=== PATIENT | female | born 1940 | race Caucasian/White ===

== ENCOUNTER → 2018-05-12 | Outpatient (CLI) | payer MEDICARE, OTHER ==
[~2018-05-12] MED LIST: ACET325 PO; ALEN70 PO; ALPHA LIPOIC A200 MG PO; AMIT10 PO; AMLO5 PO; ASPI81CH PO; ATOR20 PO; BISA10S PR; GABA300T24; GLIM2 PO; LEVSOD50 PO; LEVSOD75 PO; LISI20 PO; LOPE2C PO; MECL12.5 PO; METF500 PO; METO25 PO; METO25ER; MIRALAX17 GM PO; MYLANTA PO; Milk Of Ma400 MG/5 M PO; OLME20 PO; OMEP20ER PO; PRED10 PO; PREG75 PO; SIME80CH PO; XYLITOL PO; ZESTRIL PO; Zofran Odt4 MG SL
[2018-05-12 13:24] LABS: Bilirubin, Urine Neg (Neg); Blood, Urine 5+ (Neg); Glucose Qualitative, Urine Neg (Neg); Ketones, Urine 2+ (Neg); Leukocyte Esterase, Urine 3+ (Neg); Nitrite, Urine Pos (Neg); Protein, Urine 3+ (Neg); Urobilinogen, Urine NORM (Normal)
[2018-05-12 13:31] LABS: Appearance, Urine Turbid (Clear); Color, Urine Yellow (P-Yellow)
[2018-05-12 13:32] LABS: Bacteria Many /hpf; Red Blood Cells, Urine TNTC /hpf (0-2); Squamous Epithelial Cells Few /hpf (Few); White Blood Cells, Urine TNTC /hpf (0-5)
== END | disposition home or self-care (01) ==
LOC: LAB SHORT 07:40 → LAB 07:40
PROVIDERS: Family Medicine
DX: N39.0 Urinary tract infection, site not specified (principal)
CPT/HCPCS: 81001; 87077; 87086; 87186

== ENCOUNTER 2020-02-01 07:22 | Day surgery (SDC) | payer MEDICARE, OTHER ==
[~2020-02-01] VITALS: Ht 160 cm; Wt 70.5 kg
[~2020-02-01 07:22] MED LIST changes: +CALCIUM CITRATE PO; +TERB250 TOP; +TRAM50 PO; +VITAMIN D PO
--- NOTE | 2020-02-01 08:51 | NUR ---
History, Chart, Medications and Allergies reviewed before start of procedure.Lungs clear T/O to Auscultation. Patient confirms NPO status and agrees with scheduled surgery.
--- NOTE | 2020-02-01 12:30 | NUR ---
DISCHARGE PT DCD HOME DENIES N/V MEDICATED WITH 1 PERCOCET FOR PAIN THAT IS NOW 01/06. PT'S DAUGHTER HERE TO FORCE ADJUSTMENT SUPERVISOR PT. PT WC TO CAR. ALERT AND ORIENTED ABLE TO EAT AND DRINK AT DISCHARGE
== END 2020-02-01 22:36 | disposition home or self-care (01) ==
LOC: ORSCMMR 07:22 → ORD 09:00 → ORSCMMR 22:36
PROVIDERS: Orthopaedic Surgery
PROC: 0SBC4ZZ Excision of Right Knee Joint, Percutaneous Endoscopic Approach (ICD-10-PCS; principal; 2020-02-01 09:00)
DX: S83.231A Complex tear of medial meniscus, current injury, right knee, initial encounter (principal); I10 Essential (primary) hypertension; E11.9 Type 2 diabetes mellitus without complications; Z79.899 Other long term (current) drug therapy; Z79.84 Long term (current) use of oral hypoglycemic drugs
CPT/HCPCS: 82947; J0171; J0690; J3010; J7120

== ENCOUNTER 2025-01-28 12:45 | Emergency (ER) | payer MEDICARE, OTHER ==
[~2025-01-28] VITALS: Ht 165.1 cm; Wt 62.1 kg
[~2025-01-28 12:45] MED LIST changes: -ACET325 PO; +ACETAMINOPHEN500 MG PO; +CALCIUM CITRAT1 EA18 PO; -CALCIUM CITRATE PO
[2025-01-28] MEDS ORDERED: NS 1,000 ML IV SCH (13:25)
[2025-01-28 13:41] LABS: BASOPHILS ABSOLUTE AUTO 0.02 K/mm3 (0.00-0.23); BASOPHILS PERCENT AUTO 0 % (0-2); EOSINOPHILS ABSOLUTE AUTO 0.01 K/mm3 (0.00-0.68); EOSINOPHILS PERCENT AUTO 0 % (0-6); Hemoglobin 12.1 g/dL (11.5-16.0); IMMATURE GRAN ABSOLUTE AUTO 0.03 K/mm3 (0.00-0.10); IMMATURE GRAN PERCENT AUTO 0 % (0-1); LYMPHOCYTES ABSOLUTE AUTO 1.59 K/mm3 (0.84-5.20); LYMPHOCYTES PERCENT AUTO 20 % (21-46); MONOCYTES ABSOLUTE AUTO 0.62 K/mm3 (0.16-1.47); MONOCYTES PERCENT AUTO 8 % (4-13); Mean Corpuscular HGB 31.5 pg (26.0-34.0); Mean Corpuscular HGB Conc 33.6 g/dL (31.5-36.5); Mean Corpuscular Volume 94 fL (80-100); Mean Platelet Volume 9.1 fL (9.1-12.4); NEUTROPHILS ABSOLUTE AUTO 5.83 K/mm3 (1.96-9.15); NEUTROPHILS PERCENT AUTO 72 % (41-73); Platelet Count 321 K/mm3 (150-400); RDW Coefficient Variation 14.9 % (11.7-14.2); RDW Standard Deviation 51.7 fL (35.1-46.3); Red Blood Cell Count 3.84 M/mm3 (3.80-5.20)
[2025-01-28 13:53] LABS: Albumin, Blood 3.4 g/dL (3.4-5.0); Albumin/Globulin Ratio 0.9 (0.8-1.8); Bilirubin, Total 0.4 mg/dL (0.1-1.0); Bun/Creatinine Ratio 32.7 (12.0-20.0); Calcium, Blood 9.2 mg/dL (8.5-10.1); Creatinine, Blood 1.1 mg/dL (0.40-1.00); Globulin, Blood 3.6 g/dL (2.2-4.0)
[2025-01-28 15:46] LABS: Source, Urine Straight Cath
[2025-01-28 15:50] LABS: Appearance, Urine Hazy (Clear); Bilirubin, Urine Neg (Neg); Blood, Urine 1+ (Neg); Color, Urine Yellow (P-Yellow); Glucose Qualitative, Urine Neg (Neg); Ketones, Urine 1+ (Neg); Leukocyte Esterase, Urine 3+ (Neg); Nitrite, Urine Neg (Neg); Protein, Urine 1+ (Neg); Urobilinogen, Urine NORM (Normal)
[2025-01-28] MEDS ORDERED: DOCU100 PO (16:00)
[2025-01-28 16:01] LABS: Bacteria Many /hpf; Squamous Epithelial Cells Mod /hpf (Few); Transitional Epithelial Cells Few /hpf (0-Rare); White Blood Cells, Urine 25-50 /hpf (0-5)
[2025-01-28] MEDS ORDERED: LOPE2C PO (16:01)
[2025-01-28] MEDS ORDERED: LACT10SY PO (16:01)
[2025-01-28] MEDS ORDERED: MOTION RELIEF25 MG PO (16:02)
[2025-01-28] MEDS ORDERED: PANT40 PO (16:03)
[2025-01-28] MEDS ORDERED: Prochlorperazin10 MG PO (16:04)
[2025-01-28] MEDS ORDERED: PAXLOVID 150-11 EAC1 PO (16:04)
[2025-01-28] MEDS ORDERED: ONDA4ODT MM (17:56)
[2025-01-28] MEDS ORDERED: CEPH500 PO (17:56)
[2025-01-28 18:00] VITALS: BP 108/56
[2025-01-28] MEDS ORDERED: CefTRIAXone Sodium 1,000 MG in NS 50 ML IV ONE (18:10)
== END 2025-01-28 19:14 | disposition home or self-care (01) ==
LOC: ER 12:45
PROVIDERS: Emergency Medicine
DX: U07.1 COVID-19 (principal); N39.0 Urinary tract infection, site not specified; Z88.5 Allergy status to narcotic agent; Z88.1 Allergy status to other antibiotic agents; Z88.2 Allergy status to sulfonamides; Z79.84 Long term (current) use of oral hypoglycemic drugs; Z79.2 Long term (current) use of antibiotics; Z79.891 Long term (current) use of opiate analgesic; E11.9 Type 2 diabetes mellitus without complications; I10 Essential (primary) hypertension; M19.90 Unspecified osteoarthritis, unspecified site
CPT/HCPCS: 71045; 80053; 81001; 85025; 87077; 87086; 87186; 96361; 96374; 99284-25; J0696; J7030

== ENCOUNTER → 2025-02-10 | Outpatient (CLI) | payer MEDICARE, OTHER | LOC: LAB 12:30 → LAB SHORT 12:30 | DX: N39.0 Urinary tract infection, site not specified (principal) ==

== ENCOUNTER 2025-06-06 20:42 | Emergency (ER) | payer MEDICARE, OTHER ==
[~2025-06-06] VITALS: Ht 157.5 cm; Wt 59.4 kg
[~2025-06-06 20:42] MED LIST changes: +CEPH500 PO; +DOCU100 PO; +LACT10SY PO; +MOTION RELIEF25 MG PO; +ONDA4ODT MM; +PANT40 PO; +PAXLOVID 150-11 EAC1 PO; +Prochlorperazin10 MG PO
[2025-06-06 21:00] VITALS: BP 149/67
[2025-06-06] MEDS ORDERED: Morphine Sulfate 4 MG/1 ML Injection IV ONE (21:25)
[2025-06-06] MEDS ORDERED: Ondansetron HCl 2 MG / ML 2ML Vial IV ONE (21:45)
[2025-06-07] MEDS ORDERED: Ketorolac Tromethamine 15mg Vial IV ONE (00:20)
[2025-06-07] MEDS ORDERED: Morphine Sulfate 4 MG/1 ML Injection IV ONE (00:20)
[2025-06-07] MEDS ORDERED: Ondansetron 4 MG SoluTab SL ONE (01:45)
[2025-06-07] MEDS ORDERED: RX Prepack 2 Tabs Ondansetron ODT 4MG UD ONE (01:45)
[2025-06-07] MEDS ORDERED: RX Prepack 6 Tabs Oxycodone 5mg UD ONE (01:45)
[2025-06-07] MEDS ORDERED: Percocet 5-3251 EACH PO ×2 (01:47→10:23)
[2025-06-08] MEDS ORDERED: IBUP400 PO (09:42)
[2025-06-08] MEDS ORDERED: ONDA4ODT MM (10:22)
== END 2025-06-07 09:00 | disposition home or self-care (01) ==
LOC: ER 20:42
DX: M54.9 Dorsalgia, unspecified (principal); M25.552 Pain in left hip; M25.551 Pain in right hip; M54.2 Cervicalgia; W18.30XA Fall on same level, unspecified, initial encounter; M48.54XA Collapsed vertebra, not elsewhere classified, thoracic region, initial encounter for fracture; M48.56XA Collapsed vertebra, not elsewhere classified, lumbar region, initial encounter for fracture; E11.9 Type 2 diabetes mellitus without complications; I10 Essential (primary) hypertension; Z88.5 Allergy status to narcotic agent; Z88.8 Allergy status to other drugs, medicaments and biological substances; Z88.2 Allergy status to sulfonamides; Z88.1 Allergy status to other antibiotic agents; Z79.899 Other long term (current) drug therapy; Z79.84 Long term (current) use of oral hypoglycemic drugs
CPT/HCPCS: 70450; 72125; 72128; 72131; 73521; 96374; 96375; 96376; 99284-25; A9270; J1885; J2270; J2405

== ENCOUNTER 2025-06-08 05:47 | Emergency (ER) | payer MEDICARE, OTHER ==
[~2025-06-08] VITALS: Ht 157.5 cm; Wt 72.6 kg
[~2025-06-08 05:47] MED LIST changes: +Percocet 5-3251 EACH PO
[2025-06-08 06:00] VITALS: BP 153/82
[2025-06-08] MEDS ORDERED: NS 1,000 ML IV SCH (06:50)
[2025-06-08 07:00] LABS: BASOPHILS ABSOLUTE AUTO 0.02 K/mm3 (0.00-0.23); BASOPHILS PERCENT AUTO 0 % (0-2); EOSINOPHILS ABSOLUTE AUTO 0.10 K/mm3 (0.00-0.68); EOSINOPHILS PERCENT AUTO 1 % (0-6); Hematocrit 33.8 % (33.0-51.0); Hemoglobin 11.5 g/dL (11.5-16.0); IMMATURE GRAN ABSOLUTE AUTO 0.08 K/mm3 (0.00-0.10); IMMATURE GRAN PERCENT AUTO 1 % (0-1); LYMPHOCYTES ABSOLUTE AUTO 2.97 K/mm3 (0.84-5.20); LYMPHOCYTES PERCENT AUTO 21 % (21-46); MONOCYTES ABSOLUTE AUTO 1.05 K/mm3 (0.16-1.47); MONOCYTES PERCENT AUTO 7 % (4-13); Mean Corpuscular HGB Conc 34.0 g/dL (31.5-36.5); Mean Corpuscular Volume 95 fL (80-100); NEUTROPHILS ABSOLUTE AUTO 9.92 K/mm3 (1.96-9.15); NEUTROPHILS PERCENT AUTO 70 % (41-73); NRBC ABSOLUTE 0.00 K/mm3 (0.00-0.02); NRBC Auto 0.0 /100 WBC (0.0-0.2); Platelet Count 246 K/mm3 (150-400); RDW Coefficient Variation 14.8 % (11.7-14.2); RDW Standard Deviation 51.6 fL (35.1-46.3)
[2025-06-08 07:09] LABS: Alanine Aminotransfer (ALT/SGP 14.0 U/L (12-78); Albumin, Blood 3.6 g/dL (3.4-5.0); Albumin/Globulin Ratio 1.0 (0.8-1.8); Anion Gap 12.0 mmol/L (3-11); Aspartate Aminotrans (AST/SGOT 21.0 U/L (12-37); Bilirubin, Total 0.6 mg/dL (0.1-1.0); Blood Urea Nitrogen 23.0 mg/dL (8-24); CO2, Blood 26.0 mmol/L (21-32); Calcium, Blood 9.3 mg/dL (8.5-10.1); Chloride, Blood 100.0 mmol/L (98-108); Creatinine, Blood 0.84 mg/dL (0.40-1.00); Globulin, Blood 3.7 g/dL (2.2-4.0); Glucose, Blood 186.0 mg/dL (70-99); Magnesium, Blood 1.6 mg/dL (1.6-2.4); Potassium, Blood 4.6 mmol/L (3.5-5.5); Sodium, Blood 133.0 mmol/L (136-145); Total Protein, Blood 7.3 g/dL (6.4-8.2)
[2025-06-08] MEDS ORDERED: Magnesium Sulf 2 GM/Water 50ML 50 ML IV ONE (07:35)
[2025-06-08] MEDS ORDERED: Ketorolac Tromethamine 30mg Vial IV ONE (08:20)
[2025-06-08] MEDS ORDERED: IBUP400 PO ×2 (09:42→10:22)
[2025-06-08] MEDS ORDERED: ONDA4ODT MM (10:22)
== END 2025-06-08 10:37 | disposition home or self-care (01) ==
LOC: ER 05:47
PROVIDERS: Student in an Organized Health Care Education/Training Program
DX: S01.81XA Laceration without foreign body of other part of head, initial encounter (principal); E86.0 Dehydration; E11.9 Type 2 diabetes mellitus without complications; I10 Essential (primary) hypertension; W01.0XXA Fall on same level from slipping, tripping and stumbling without subsequent striking against object, initial encounter; Z86.73 Personal history of transient ischemic attack (TIA), and cerebral infarction without residual deficits; Z79.84 Long term (current) use of oral hypoglycemic drugs; Z79.899 Other long term (current) drug therapy; Z88.5 Allergy status to narcotic agent; Z88.1 Allergy status to other antibiotic agents; Z88.8 Allergy status to other drugs, medicaments and biological substances
CPT/HCPCS: 12011; 70450; 80053; 83735; 85025; 93005; 93010; 96374; 99285-25; J1885; J3475; J7030

== ENCOUNTER 2025-06-13 20:13 | Emergency (ER) | payer MEDICARE, OTHER ==
[~2025-06-13] VITALS: Ht 157.5 cm; Wt 59.0 kg
[~2025-06-13 20:13] MED LIST changes: +IBUP400 PO
[2025-06-13 23:04] LABS: BASOPHILS ABSOLUTE AUTO 0.04 K/mm3 (0.00-0.23); BASOPHILS PERCENT AUTO 0 % (0-2); EOSINOPHILS ABSOLUTE AUTO 0.18 K/mm3 (0.00-0.68); EOSINOPHILS PERCENT AUTO 2 % (0-6); Hematocrit 33.1 % (33.0-51.0); Hemoglobin 11.5 g/dL (11.5-16.0); IMMATURE GRAN ABSOLUTE AUTO 0.05 K/mm3 (0.00-0.10); IMMATURE GRAN PERCENT AUTO 0 % (0-1); LYMPHOCYTES ABSOLUTE AUTO 2.10 K/mm3 (0.84-5.20); LYMPHOCYTES PERCENT AUTO 17 % (21-46); MONOCYTES ABSOLUTE AUTO 0.83 K/mm3 (0.16-1.47); MONOCYTES PERCENT AUTO 7 % (4-13); Mean Corpuscular HGB Conc 34.7 g/dL (31.5-36.5); Mean Corpuscular Volume 95 fL (80-100); NEUTROPHILS ABSOLUTE AUTO 8.86 K/mm3 (1.96-9.15); NEUTROPHILS PERCENT AUTO 74 % (41-73); NRBC ABSOLUTE 0.00 K/mm3 (0.00-0.02); NRBC Auto 0.0 /100 WBC (0.0-0.2); Platelet Count 306 K/mm3 (150-400); RDW Coefficient Variation 15.1 % (11.7-14.2); RDW Standard Deviation 51.6 fL (35.1-46.3)
[2025-06-13] MEDS ORDERED: OXYCODONE-ACET1 EAC3 PO (23:06)
[2025-06-13 23:25] LABS: Alanine Aminotransfer (ALT/SGP 16.0 U/L (12-78); Albumin, Blood 3.3 g/dL (3.4-5.0); Albumin/Globulin Ratio 0.9 (0.8-1.8); Anion Gap 8.0 mmol/L (3-11); Aspartate Aminotrans (AST/SGOT 16.0 U/L (12-37); Bilirubin, Total 0.4 mg/dL (0.1-1.0); Blood Urea Nitrogen 16.0 mg/dL (8-24); CO2, Blood 28.0 mmol/L (21-32); Calcium, Blood 8.4 mg/dL (8.5-10.1); Chloride, Blood 101.0 mmol/L (98-108); Creatinine, Blood 0.87 mg/dL (0.40-1.00); Globulin, Blood 3.5 g/dL (2.2-4.0); Glucose, Blood 217.0 mg/dL (70-99); Potassium, Blood 4.4 mmol/L (3.5-5.5); Sodium, Blood 133.0 mmol/L (136-145); Total Protein, Blood 6.8 g/dL (6.4-8.2)
[2025-06-13 23:53] LABS: Source, Urine Clean Catch
[2025-06-14 00:11] LABS: Bilirubin, Urine Neg (Neg); Glucose Qualitative, Urine 3+ (Neg); Ketones, Urine Neg (Neg); Leukocyte Esterase, Urine Neg (Neg); Protein, Urine Neg (Neg); Specific Gravity, Urine 1.015 (1.003-1.022); Urobilinogen, Urine NORM (Normal)
[2025-06-14 00:15] LABS: Color, Urine Yellow (P-Yellow)
[2025-06-14] MEDS ORDERED: QUET25 PO (02:05)
[2025-06-14 03:00] VITALS: BP 152/68
== END 2025-06-14 03:00 | disposition home or self-care (01) ==
LOC: ER 20:13
PROVIDERS: Emergency Medicine
DX: R41.0 Disorientation, unspecified (principal); F03.90 Unspecified dementia, unspecified severity, without behavioral disturbance, psychotic disturbance, mood disturbance, and anxiety; E11.9 Type 2 diabetes mellitus without complications; I10 Essential (primary) hypertension; Z88.5 Allergy status to narcotic agent; Z88.8 Allergy status to other drugs, medicaments and biological substances; Z79.899 Other long term (current) drug therapy; Z79.890 Hormone replacement therapy; Z79.84 Long term (current) use of oral hypoglycemic drugs; Z86.73 Personal history of transient ischemic attack (TIA), and cerebral infarction without residual deficits; Z91.81 History of falling
CPT/HCPCS: 80053; 81003; 85025; 93005; 93010; 99285-25; A9270

== ENCOUNTER → 2025-06-15 | Outpatient (CLI) | payer MEDICARE, OTHER ==
[~2025-06-15] MED LIST changes: +OXYCODONE-ACET1 EAC3 PO; +QUET25 PO
== END ==
LOC: LAB SHORT 11:27 → LAB 11:27
DX: R53.83 Other fatigue (principal)
CPT/HCPCS: 84443

== ENCOUNTER 2025-08-11 17:03 | Emergency (ER) | payer MEDICARE, OTHER | END 2025-08-11 19:42 | disposition home or self-care (01) | LOC: ER 17:03 | DX: G45.9 Transient cerebral ischemic attack, unspecified (principal); E11.9 Type 2 diabetes mellitus without complications; M19.90 Unspecified osteoarthritis, unspecified site; I10 Essential (primary) hypertension; Z90.710 Acquired absence of both cervix and uterus; Z88.8 Allergy status to other drugs, medicaments and biological substances; Z88.2 Allergy status to sulfonamides; Z79.899 Other long term (current) drug therapy ==

== ENCOUNTER 2025-09-24 13:05 | Observation (INO) | payer MEDICARE, OTHER ==
[~2025-09-24] VITALS: Ht 157.5 cm; Wt 58.7 kg
[~2025-09-24 13:05] MED LIST changes: +Aspir 8181 MG PO; +CLOP75 PO
[2025-09-24 13:23] LABS: BASOPHILS ABSOLUTE AUTO 0.06 K/mm3 (0.00-0.23); BASOPHILS PERCENT AUTO 1 % (0-2); EOSINOPHILS ABSOLUTE AUTO 0.29 K/mm3 (0.00-0.68); EOSINOPHILS PERCENT AUTO 3 % (0-6); Hematocrit 31.1 % (33.0-51.0); Hemoglobin 10.1 g/dL (11.5-16.0); IMMATURE GRAN ABSOLUTE AUTO 0.03 K/mm3 (0.00-0.10); IMMATURE GRAN PERCENT AUTO 0 % (0-1); LYMPHOCYTES ABSOLUTE AUTO 2.44 K/mm3 (0.84-5.20); LYMPHOCYTES PERCENT AUTO 22 % (21-46); MONOCYTES ABSOLUTE AUTO 1.11 K/mm3 (0.16-1.47); MONOCYTES PERCENT AUTO 10 % (4-13); Mean Corpuscular HGB Conc 32.5 g/dL (31.5-36.5); Mean Corpuscular Volume 97 fL (80-100); NEUTROPHILS ABSOLUTE AUTO 7.07 K/mm3 (1.96-9.15); NEUTROPHILS PERCENT AUTO 64 % (41-73); NRBC ABSOLUTE 0.00 K/mm3 (0.00-0.02); NRBC Auto 0.0 /100 WBC (0.0-0.2); Platelet Count 300 K/mm3 (150-400); RDW Coefficient Variation 13.1 % (11.7-14.2); RDW Standard Deviation 46.8 fL (35.1-46.3)
[2025-09-24 13:42] LABS: Alanine Aminotransfer (ALT/SGP 22.0 U/L (12-78); Albumin, Blood 3.2 g/dL (3.4-5.0); Albumin/Globulin Ratio 0.9 (0.8-1.8); Anion Gap 9.0 mmol/L (3-11); Aspartate Aminotrans (AST/SGOT 24.0 U/L (12-37); Bilirubin, Total 0.2 mg/dL (0.1-1.0); Blood Urea Nitrogen 22.0 mg/dL (8-24); CO2, Blood 25.0 mmol/L (21-32); Calcium, Blood 8.6 mg/dL (8.5-10.1); Chloride, Blood 108.0 mmol/L (98-108); Creatinine, Blood 0.82 mg/dL (0.40-1.00); Globulin, Blood 3.7 g/dL (2.2-4.0); Glucose, Blood 144.0 mg/dL (70-99); Potassium, Blood 4.3 mmol/L (3.5-5.5); Sodium, Blood 138.0 mmol/L (136-145); Total Protein, Blood 6.9 g/dL (6.4-8.2)
[2025-09-24] MEDS ORDERED: BUDESONIDE-FO10.2 G2 INH (13:57)
[2025-09-24] MEDS ORDERED: FAMO20 PO (13:57)
[2025-09-24] MEDS ORDERED: FLU VACC TS2025(65UP)/MF59C/PF 45 MCG/0.5 ML SYRINGE IM SCH (16:25)
[2025-09-24] MEDS ORDERED: Ondansetron 4 MG SoluTab MM PRN (17:05)
--- NOTE | 2025-09-24 19:00 | NUR ---
ARRIVAL TO SURGICAL UNIT ROOM 224 AT 1847. PT ARRIVED VIA GURNEY AND ABLE TO STAND AND AMBULATE WITH STAFF GUIDANCE TO HOSPITAL BED. 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 PT HAS DENTURES AND HEARING AIDS PRESENT ON ADMISSION. DAUGHTER MARYBETH AT BEDSIDE AND REPORTS HAS POA BUT UNSURE IF IS MEDICAL OR FINANCIAL. PT IS DNR CODE STATUS AND DNR BRACELET PLACED, PT AND DAUGHTER MARYBETH VERBALIZE UNDERSTANDING. DENIES IGNITION SOURCES PRESENT. BED ALARM SET FOR SAFETY AND RAISED STICKER PLACED TO HELP PT LOCATE CALL [employer] HEAD LIGHT REMOTE.
[2025-09-24 19:02] VITALS: BP 142/69
--- NOTE | 2025-09-24 22:00 | NUR ---
CALL TO HOSPITALIST. UPON REVIEW OF MEDICATION RECONCILIATION WITH PT AND DAUGHTER, HOME MEDICATION SYMBICORT WAS NOT ORDERED ON ADMISSION. VERBAL ORDER VIA TELEPHONE OBTAINED TO ORDER HOME DOSE/FREQUENCY OF SYMBICORT FROM DR. MARROQUIN.
[2025-09-25 01:19] VITALS: BP 131/64
[2025-09-25] MEDS ORDERED: Formoterol/Mometasone MDI 5/200 mcg 13 GM INH SCH (02:35)
--- NOTE | 2025-09-25 02:48 | NUR ---
CALL TO PHARMACIST. UNABLE TO ENTER OPTION FOR SYMBICORT IN MEDICATION ORDERS. PER PHARMACIST ARISTIDES, DULERA 200 IS THE SUBSTITUTION FOR SYMBICORT 160-4.5 DOSING. PLACED ORDERS FOR THE SUBSTITUTION PER PHARMACIST RECOMENDATION.
[2025-09-25 04:47] LABS: BASOPHILS ABSOLUTE AUTO 0.04 K/mm3 (0.00-0.23); BASOPHILS PERCENT AUTO 1 % (0-2); EOSINOPHILS ABSOLUTE AUTO 0.21 K/mm3 (0.00-0.68); EOSINOPHILS PERCENT AUTO 3 % (0-6); Hematocrit 28.6 % (33.0-51.0); Hemoglobin 9.6 g/dL (11.5-16.0); IMMATURE GRAN ABSOLUTE AUTO 0.02 K/mm3 (0.00-0.10); IMMATURE GRAN PERCENT AUTO 0 % (0-1); LYMPHOCYTES ABSOLUTE AUTO 1.82 K/mm3 (0.84-5.20); LYMPHOCYTES PERCENT AUTO 21 % (21-46); MONOCYTES ABSOLUTE AUTO 1.05 K/mm3 (0.16-1.47); MONOCYTES PERCENT AUTO 12 % (4-13); Mean Corpuscular HGB Conc 33.6 g/dL (31.5-36.5); Mean Corpuscular Volume 94 fL (80-100); NEUTROPHILS ABSOLUTE AUTO 5.43 K/mm3 (1.96-9.15); NEUTROPHILS PERCENT AUTO 63 % (41-73); NRBC ABSOLUTE 0.00 K/mm3 (0.00-0.02); NRBC Auto 0.0 /100 WBC (0.0-0.2); Platelet Count 267 K/mm3 (150-400); RDW Coefficient Variation 13.2 % (11.7-14.2); RDW Standard Deviation 45.6 fL (35.1-46.3)
[2025-09-25 05:06] VITALS: BP 145/71
[2025-09-25 05:19] LABS: Anion Gap 4.0 mmol/L (3-11); Blood Urea Nitrogen 23.0 mg/dL (8-24); CO2, Blood 30.0 mmol/L (21-32); Calcium, Blood 9.1 mg/dL (8.5-10.1); Chloride, Blood 110.0 mmol/L (98-108); Creatinine, Blood 0.72 mg/dL (0.40-1.00); Glucose, Blood 103.0 mg/dL (70-99); Potassium, Blood 3.8 mmol/L (3.5-5.5); Sodium, Blood 140.0 mmol/L (136-145)
--- NOTE | 2025-09-25 06:17 | NUR ---
SHIFT SUMMARY NOC. PT ADMIT FOR LEFT SIDED WEAKNESS AND SUSPECTED TIA. PT A/O X4, SPEECH IS SLOW BUT NOT SLURRED. NO TROUBLE WITH WORD FINDING. JUNIOR LOAN PROCESSOR STRENGTH EQUAL, NO FACIAL DROOP NOTED. PT HAS REDUCED ROM TO LEFT SHOULDER, PT REPORTED HX OF INJURY IN SHOULDER AND DIFFICULTY LIFTING ARM R/T PAIN OVER WEAKNESS. PT ANSWERS QUESTIONS APPROPRIATELY. PT ABLE TO USE CALL LIGHT WITH ADDED RAISED STICKER, PT IS BLIND. PT MEDICATED FOR PAIN X1 WITH ORAL TYLENOL FOR BACK/L SHOULDER PAIN. PT VOIDING URINE VIA BSC WITH STAFF ASSISTANCE, BED ALARM SET FOR SAFETY D/T HX OF FALLS.
[2025-09-25 07:16] VITALS: BP 142/72
[2025-09-25] MEDS ORDERED: MetFORMIN HCl 500 mg PO SCH (08:00)
[2025-09-25] MEDS ORDERED: Enoxaparin 40 MG/0.4 ML SYR SC SCH (09:00)
[2025-09-25] MEDS ORDERED: Cyanocobalamin/Fa/Pyridoxine 1 Tablet PO SCH (09:00)
--- NOTE | 2025-09-25 12:53 | NUR ---
NURSING NOTE: PATIENT LEFT FLOOR TO GO TO MRI.
[2025-09-25 16:46] VITALS: BP 122/58
--- NOTE | 2025-09-25 17:12 | NUR ---
SHIFT SUMMARY: A & OX4, CALM, COOPERATIVE. VSS ON RA. TOLERATING DIET. C/O LEFT SHOULDER PAIN, INCREASING WITH MOVEMENT, TYLENOL EFFECTIVE, X-RAY DONE OF L SHOULDER, NEGATIVE FOR FRACTURE. ECHO DONE TODAY EF 65%. MRI OF HEAD, SEE RESULTS. PATIENT TRANSFERS 1 PA TO [facility], NEEDS DIRECTION DUE TO BLINDNESS. BLOOD SUGARS ELEVATED, TAKEN AC HS, PATIENT TAKING METFORMIN, REFUSED AM DOSE. SLIGHT LEFT FACIAL DROOP NOTED, NO SWALLOWING DIFFICULTIES, EMERGENCY DISPATCHER STRENGTH STRONG. PATIENT ABLE TO MOVE LEGS AGAINST RESISTENCE WITHOUT DIFFICULTY. BED ALARM ON FOR PATIENT SAFETY, PATIENT EDUCATED PATIENT CARE DIRECTOR LIGHT, VERBALIZED UNDERSTANDING. VOIDS WITHOUT DIFFICULTY. LBM 09/23, PASSING GAS. DAUGHTER AT BEDSIDE, HELPFUL IN CARES.
[2025-09-25 19:21] VITALS: BP 120/60
[2025-09-26 03:04] VITALS: BP 149/75
[2025-09-26 05:40] LABS: BASOPHILS ABSOLUTE AUTO 0.04 K/mm3 (0.00-0.23); BASOPHILS PERCENT AUTO 1 % (0-2); EOSINOPHILS ABSOLUTE AUTO 0.23 K/mm3 (0.00-0.68); EOSINOPHILS PERCENT AUTO 3 % (0-6); Hematocrit 29.0 % (33.0-51.0); Hemoglobin 9.6 g/dL (11.5-16.0); IMMATURE GRAN ABSOLUTE AUTO 0.02 K/mm3 (0.00-0.10); IMMATURE GRAN PERCENT AUTO 0 % (0-1); LYMPHOCYTES ABSOLUTE AUTO 1.96 K/mm3 (0.84-5.20); LYMPHOCYTES PERCENT AUTO 24 % (21-46); MONOCYTES ABSOLUTE AUTO 0.93 K/mm3 (0.16-1.47); MONOCYTES PERCENT AUTO 12 % (4-13); Mean Corpuscular HGB Conc 33.1 g/dL (31.5-36.5); Mean Corpuscular Volume 96 fL (80-100); NEUTROPHILS ABSOLUTE AUTO 4.93 K/mm3 (1.96-9.15); NEUTROPHILS PERCENT AUTO 61 % (41-73); NRBC ABSOLUTE 0.00 K/mm3 (0.00-0.02); NRBC Auto 0.0 /100 WBC (0.0-0.2); Platelet Count 292 K/mm3 (150-400); RDW Coefficient Variation 13.2 % (11.7-14.2); RDW Standard Deviation 46.4 fL (35.1-46.3)
[2025-09-26 06:16] LABS: Anion Gap 10.0 mmol/L (3-11); Blood Urea Nitrogen 26.0 mg/dL (8-24); CO2, Blood 26.0 mmol/L (21-32); Calcium, Blood 8.7 mg/dL (8.5-10.1); Chloride, Blood 108.0 mmol/L (98-108); Creatinine, Blood 0.82 mg/dL (0.40-1.00); Glucose, Blood 107.0 mg/dL (70-99); Potassium, Blood 4.0 mmol/L (3.5-5.5); Sodium, Blood 140.0 mmol/L (136-145)
[2025-09-26 07:06] VITALS: BP 126/59
[2025-09-26] MEDS ORDERED: Insulin Human Lispro 100 Units/ML 3ML Syringe SC SCH (07:30)
--- NOTE | 2025-09-26 07:43 | NUR ---
SHIFT SUMMARY NOC. PT ADMIT FOR LEFT SIDED WEAKNESS AND SUSPECTED TIA. PT A/O X4. PUPILS EQUAL AND REACTIVE, NO SLURRED SPEECH, ACCOUNT ADVISOR STRENGTH EQUAL AND NO FACIAL DROOP NOTED. PT CONTINUES TO HAVE PAIN AND REDUCED ROM TO LEFT SHOULDER. PT CONTINENT OF URINE AND VOIDS WITH STAFF ASSIST TO BSC. PT MEDICATED WITH ORAL TYLENOL WITH SOME REPORTED RELIEF. BED ALARM SET FOR SAFETY. CALL LIGHT WITH RAISED STICKER OVER BUTTON FOR EASIER USE IN REACH.
[2025-09-26] MEDS ORDERED: ASPI81CH PO (12:21)
--- NOTE | 2025-09-26 15:20 | NUR ---
DISCHARGE WORKED w/ THERAPY THIS AM & IS FEELING STRONGER. BOTH PT & DAUGHTER FEEL COMFORTABLE w/ DC SYMPTOMS HAVE RESOLVED EXCEPT CHRONIC L SHOULDER PAIN. DISCUSSED DC INSTRUCTIONS w/ DAUGHTER THE PT LISTENED. BOTH STATE UNDERSTANDING. BELONGINGS RETURNED. ESCORTED OUT VIA WC.
[2025-09-27] MEDS ORDERED: REGLAN1013 PO (11:15)
== END 2025-09-26 15:20 | disposition home health service (06) ==
LOC: ER 13:05 → SURS 13:06
PROVIDERS: Emergency Medicine; ADMIT Family Medicine
DX: G45.9 Transient cerebral ischemic attack, unspecified (principal); E11.9 Type 2 diabetes mellitus without complications; E03.9 Hypothyroidism, unspecified; I11.0 Hypertensive heart disease with heart failure; I50.30 Unspecified diastolic (congestive) heart failure; E53.8 Deficiency of other specified B group vitamins; M79.602 Pain in left arm; M79.7 Fibromyalgia; H54.7 Unspecified visual loss; Z66 Do not resuscitate; Z88.2 Allergy status to sulfonamides; Z88.8 Allergy status to other drugs, medicaments and biological substances; Z79.890 Hormone replacement therapy; Z79.84 Long term (current) use of oral hypoglycemic drugs; Z79.02 Long term (current) use of antithrombotics/antiplatelets; Z90.49 Acquired absence of other specified parts of digestive tract; Z79.899 Other long term (current) drug therapy; Z86.73 Personal history of transient ischemic attack (TIA), and cerebral infarction without residual deficits
CPT/HCPCS: 36415; 70450; 70551; 71045; 73030; 73060; 80048; 80053; 82947; 84443; 85025; 93005; 93010; 93306; 94640; 94664; 94760; 97116; 97161; 99285-25; A9270; G0378

== ENCOUNTER 2025-09-27 06:59 | Emergency (ER) | payer MEDICARE, OTHER ==
[~2025-09-27] VITALS: Ht 160 cm; Wt 59.0 kg
[~2025-09-27 06:59] MED LIST changes: +BUDESONIDE-FO10.2 G2 INH; +FAMO20 PO
[2025-09-27 07:59] LABS: BASOPHILS ABSOLUTE AUTO 0.05 K/mm3 (0.00-0.23); BASOPHILS PERCENT AUTO 1 % (0-2); EOSINOPHILS ABSOLUTE AUTO 0.34 K/mm3 (0.00-0.68); EOSINOPHILS PERCENT AUTO 3 % (0-6); Hematocrit 32.5 % (33.0-51.0); Hemoglobin 10.8 g/dL (11.5-16.0); IMMATURE GRAN ABSOLUTE AUTO 0.02 K/mm3 (0.00-0.10); IMMATURE GRAN PERCENT AUTO 0 % (0-1); LYMPHOCYTES ABSOLUTE AUTO 2.10 K/mm3 (0.84-5.20); LYMPHOCYTES PERCENT AUTO 21 % (21-46); MONOCYTES ABSOLUTE AUTO 1.04 K/mm3 (0.16-1.47); MONOCYTES PERCENT AUTO 11 % (4-13); Mean Corpuscular HGB Conc 33.2 g/dL (31.5-36.5); Mean Corpuscular Volume 95 fL (80-100); NEUTROPHILS ABSOLUTE AUTO 6.33 K/mm3 (1.96-9.15); NEUTROPHILS PERCENT AUTO 64 % (41-73); NRBC ABSOLUTE 0.00 K/mm3 (0.00-0.02); NRBC Auto 0.0 /100 WBC (0.0-0.2); Platelet Count 322 K/mm3 (150-400); RDW Coefficient Variation 13.2 % (11.7-14.2); RDW Standard Deviation 46.1 fL (35.1-46.3)
[2025-09-27 08:06] LABS: Alanine Aminotransfer (ALT/SGP 22.0 U/L (12-78); Albumin, Blood 3.3 g/dL (3.4-5.0); Albumin/Globulin Ratio 0.9 (0.8-1.8); Anion Gap 8.0 mmol/L (3-11); Aspartate Aminotrans (AST/SGOT 17.0 U/L (12-37); Bilirubin, Total 0.4 mg/dL (0.1-1.0); Blood Urea Nitrogen 31.0 mg/dL (8-24); CO2, Blood 26.0 mmol/L (21-32); Calcium, Blood 9.4 mg/dL (8.5-10.1); Chloride, Blood 108.0 mmol/L (98-108); Creatinine, Blood 0.87 mg/dL (0.40-1.00); Globulin, Blood 3.7 g/dL (2.2-4.0); Glucose, Blood 98.0 mg/dL (70-99); Potassium, Blood 4.1 mmol/L (3.5-5.5); Sodium, Blood 138.0 mmol/L (136-145); Total Protein, Blood 7.0 g/dL (6.4-8.2)
[2025-09-27] MEDS ORDERED: NS 500 ML IV SCH (09:25)
[2025-09-27] MEDS ORDERED: Metoclopramide HCl 5MG / ML 2ML Vial IV ONE (09:25)
[2025-09-27 10:05] LABS: Source, Urine Straight Cath
[2025-09-27 10:08] LABS: Bilirubin, Urine Neg (Neg); Color, Urine Yellow (P-Yellow); Glucose Qualitative, Urine Neg (Neg); Ketones, Urine Neg (Neg); Leukocyte Esterase, Urine Neg (Neg); Protein, Urine Neg (Neg); Specific Gravity, Urine 1.015 (1.003-1.022); Urobilinogen, Urine NORM (Normal)
[2025-09-27 10:17] LABS: White Blood Cells, Urine 0-2 /hpf (0-5)
[2025-09-27 10:30] VITALS: BP 135/73
[2025-09-27] MEDS ORDERED: REGLAN1013 PO ×2 (11:15→11:29)
== END 2025-09-27 11:44 | disposition home or self-care (01) ==
LOC: ER 06:59
PROVIDERS: Student in an Organized Health Care Education/Training Program
DX: G43.909 Migraine, unspecified, not intractable, without status migrainosus (principal); R29.90 Unspecified symptoms and signs involving the nervous system; E11.9 Type 2 diabetes mellitus without complications; M19.90 Unspecified osteoarthritis, unspecified site; I10 Essential (primary) hypertension; Z79.899 Other long term (current) drug therapy; Z88.8 Allergy status to other drugs, medicaments and biological substances; Z88.2 Allergy status to sulfonamides
CPT/HCPCS: 51701; 70450; 80053; 81001; 85025; 93005; 93010; 96361-59; 96374-59; 99285-25; A9270; J2765; J7030